=== PATIENT | female | born 2005 | race Caucasian/White ===

== ENCOUNTER 2023-07-01 14:51 | Outpatient (CLI) | payer OTHER | END 2023-07-01 14:52 | disposition home or self-care (01) | LOC: CSHWCC 14:51 | PROVIDERS: ATTEND Nurse Practitioner Family | DX: S91.012D Laceration without foreign body, left ankle, subsequent encounter (principal); L97.322 Non-pressure chronic ulcer of left ankle with fat layer exposed ==

== ENCOUNTER 2023-07-13 10:55 | Outpatient (CLI) | payer OTHER | END 2023-07-13 10:56 | disposition home or self-care (01) | LOC: CSHWCC 10:55 | PROVIDERS: ATTEND Nurse Practitioner Family | DX: S91.012D Laceration without foreign body, left ankle, subsequent encounter (principal); L97.322 Non-pressure chronic ulcer of left ankle with fat layer exposed | CPT/HCPCS: 11042 ==